=== PATIENT | female | born 2000 | race Caucasian/White ===

== ENCOUNTER 2022-04-30 12:10 | Emergency (ER) | payer SELFPAY ==
[2022-04-30 13:25] LABS: Pregnancy Test - Urine (BHCG) Negative (Negative); Pregu Control Background? CLEAR/WHITE (CLR/WHITE); Pregu Control Bar Appear? YES (CONTROL BAR); Specific Gravity 1.015 (1.002-1.036)
[2022-04-30 13:59] LABS: BHCG - Serum Negative (NEGATIVE); Pregs Control Background? CLEAR/WHITE (CLR/WHITE); Pregs Control Bar Appear? YES (CONTROL BAR)
== END 2022-04-30 14:19 | disposition home or self-care (01) ==
LOC: CSHERS 12:10
DX: R11.0 Nausea (principal)
CPT/HCPCS: 36415; 81025; 84702; 84703; 99283